=== PATIENT | female | born 2000 | race Two or more races ===

== ENCOUNTER → 2025-01-24 | Outpatient (CLI) | payer MEDICAID, SELFPAY ==
--- NOTE | 2025-01-24 | XR_ITS ---
Examination: Lumbar spine, 5 views Technique: Lumbar spine AP, lateral, coned lateral lower lumbar spine, bilateral obliques 5 views Exam date and time: January 24, 2025 1326 hrs. Indications: Low back pain one month. Findings: Adequate alignment lumbar vertebral bodies No lumbar fracture Moderate disc narrowing L5-S1 No spondylolisthesis Impression: Moderate degenerative disc disease L5-S1
--- NOTE | 2025-01-24 | XR_ITS ---
Examination: Thoracic spine 3 views Technique one AP lateral coned lateral upper dorsal spine 3 views Exam date and time: January 24, 2025 1331 hrs. Indication: Back pain 3 months. Findings: Thoracic levoscoliosis 6 degrees No thoracic fracture Intact pedicles Impression: Thoracic levoscoliosis 6 degrees
== END | disposition home or self-care (01) ==
LOC: CDIM 12:01
PROVIDERS: PCP Nurse Practitioner Family; Referring Provider Nurse Practitioner Family; Visit Provider Nurse Practitioner Family
DX: M41.84 Other forms of scoliosis, thoracic region (principal); M51.379 Other intervertebral disc degeneration, lumbosacral region without mention of lumbar back pain or lower extremity pain
CPT/HCPCS: 72072; 72110